=== PATIENT | male | born 1955 | race Caucasian/White ===

== ENCOUNTER 2023-01-24 06:39 | Day surgery (SDC) | payer OTHER, SELFPAY ==
[2022-12-16 09:41] VITALS: BMI 32.5
[2023-01-24] VITALS (13 sets, daily range): BP systolic 96–135; BP diastolic 56–92; PULSE 67–86; RESP 13–21; TEMP 35.9–36.7; O2SAT 89–99; BMI 32.5
[2023-01-24] MEDS: LACTATED RINGERS 1,000 ML 21 ML IV ×2 (07:26→09:57)
[2023-01-24] MEDS: VANCOMYCIN 1,000 MG/200 ML PIGGYBACK 200 MG IV ×2 (07:26→08:56)
[2023-01-24] MEDS: ACETAMINOPHEN IV 1,000 MG/100 ML VIAL 400 MG IV (07:26)
--- NOTE | 2023-01-24 07:40 | PM.PREOP ---
Pre-operative Note COVID-19 Criteria for continued procedure: Expected advancement of disease process, Deterioration of the patient's condition or overall health, Delay expected to result in less-positive ultimate med/surg outcome and Non-surgical alternatives not available or appropriate per current SOC Interval Note History & Physical reviewed/Exam performed by Physician: Yes Changes to H&P: No
--- NOTE | 2023-01-24 08:33 | SUR.OPER ---
Lithotomy on padded OR bed, head on pillow, arms secured on padded arm boards at <90 degrees abduction. Legs secured in padded yellow fins stirrups.
[2023-01-24] MEDS: BUPIVACAINE LIPOSOME 266 MG/20 ML VIAL INJ (08:53)
[2023-01-24] MEDS: BUPIVACAINE 0.25% (PF) 30 ML, EPINEPHrine 0.15 MG INJ (08:53)
[2023-01-24] MEDS: GENTAMICIN 160 MG in SODIUM CHLORIDE 0.9% 100 ML 104 MG IV (08:57)
--- NOTE | 2023-01-24 10:25 | PM.OP.1 ---
Operative Date/Time/Diagnoses Date of procedure: 01/24/23 Time of procedure: 10:10 Pre-op diagnosis: Stress urinary incontinence Post-op diagnosis: same Procedure & Clinicians Procedure: 1. Placement AMS 800 artificial urinary sphincter. -4.5 cm cuff -inhibit zone control pump -61 cm to 70 cm pressure regulating balloon filled to 24 cc Same procedure as scheduled: Yes Indications: 1. Stress urinary incontinence. Surgeon: Margarita Russo Assistant Professor Of Nursing: Polina Louis Click Yes if Unassisted: No Anesthesia Type: General and Local (1.33% Exparel and 0.25% Marcaine with epinephrine.) Operative Notes Findings: Essentially normal midline perineal tissue planes. Closure Type: primary Specimen(s): none sent Prosthetic devices, grafts, tissues, transplants, or devices: See above and GTIN product numbers. Applied: implant(s) (See product GTIN LABELS) Estimated Blood Loss (mL): 5 Blood products transfused: none Procedure in detail: The patient was positioned supine was administered general anesthesia. He was then positioned in semi lithotomy in the abdomen, genitalia, groin and perineum was prepped and draped sterile fashion. A 16 Kinyarwanda Fiore catheter was placed in the bladder and the contents drained. The patient was then repositioned in more exaggerated lithotomy and local anesthetic with epinephrine was applied to the midline perineum. Incision was made in the posterior scrotum vertically in the midline perineum. Blunt dissection was used to divide the perineal body and perineal fat down to level of the bulbar urethra. Using blunt and cautery dissection the bulbar urethral was mobilized and isolated proximally. The girth of the bulbous urethral was then measured at 4.5 cm. Prosthetic components were prepared. Next, the skin was infiltrated with 0.25% Marcaine with epinephrine just above the right pubic symphysis over the superior margin of the pubic bone. A transverse incision was then made in the subcutaneous fat and Portia's fascia was divided with cautery and blunt technique down to the level of the rectus fascia. Just above the right pubic symphysis the rectus fascia was perforated with the close tips of the Strauss scissor. The index finger was then insinuated and a plane was developed over the surface of the periosteum in the retropubic space. Next the bulb reservoir was positioned in the space and the fascia was closed with a circumferential 2-0 Vicryl. The pump was then passed from this incision through the subcutaneous space into the anterior midline scrotum. Next the cuff was positioned appropriately around the bulbar urethra and the connection tubing was transferred using a trocar to the above-described right suprapubic incision. The reservoir was then filled to 24 cc. Straight barrel connectors x2 were used to connect and enclose the system being sure to bleed all air out. The veil connectors were then seated deeply within a subcutaneous pocket above the rectus fascia. The device was then cycled twice before being deactivated when the cuff was partially filled. The suprapubic skin layer was closed with a running 4-0 subcuticular Monocryl. A small Telfa pad was tailored appropriately over the incision and a transparent Telfa dressing was then applied over this site. Two 0 PDS was used to close the perineal body and the perineal space in 2 layers. A 2-0 Monocryl was then used in running fashion to reapproximate the subcutaneous layer. The skin was then reapproximated in the perineal midline with a running 4-0 Monocryl. The skin surface was cleaned and dried. Again a small Telfa was tailored appropriately to cover the incision site. Op site was then applied over this. The Fiore catheter was removed. The patient was then fitted with incontinence pads and was then repositioned in supine, awakened, and then transferred to a rrowan for transport to PACU. Complications: none Post-operative Condition: stable Disposition: PACU Plan for aftercare: DISCHARGE HOME
[2023-01-24] MEDS: ALBUTEROL/IPRATROPIUM 3 ML AMPUL INH (10:40)
== END 2023-01-24 11:50 | disposition home or self-care (01) ==
PROVIDERS: PCP Family Medicine; Referring Provider Specialist; Visit Provider Specialist
PROC: (CPT 53445; principal; 2023-01-24 07:45)
DX: N39.3 Stress incontinence (female) (male) (principal); N52.9 Male erectile dysfunction, unspecified; Z85.46 Personal history of malignant neoplasm of prostate; Z80.42 Family history of malignant neoplasm of prostate
CPT/HCPCS: 53445; 82962; C1771; C9290; J0131; J0171; J0330; J1100; J2405; J2704; J3010

== ENCOUNTER → 2023-09-13 14:02 | Outpatient (CLI) | payer OTHER, SELFPAY ==
[2023-09-13 14:54] LABS: Appearance Urine UA CLEAR; Bilirubin Urine UA NEGATIVE (NEGATIVE); Color Urine UA YELLOW; Glucose Urine UA NEGATIVE (Negative); Ketones Urine UA NEGATIVE (NEGATIVE); Leukocyte Esterase Urine UA NEGATIVE (NEGATIVE); Nitrite Urine UA NEGATIVE (Negative); Occult Blood Urine UA NEGATIVE (Negative); Protein Urine UA NEGATIVE (Negative); pH Urine UA 5.5 (4.5-8.0)
[2023-09-13 15:35] LABS: Bacteria Urine None Seen; Culture Indicated Urine Cult Not Indicated; RBC Urine None Seen (0-5/HPF); Squamous Epithelial Cell Urine None Seen (0-5/HPF); WBC Urine 0-1/HPF (0-5/HPF)
== END ==
PROVIDERS: PCP Family Medicine; Visit Provider Specialist
DX: T83.111A Breakdown (mechanical) of implanted urinary sphincter, initial encounter (principal); Z85.46 Personal history of malignant neoplasm of prostate
CPT/HCPCS: 51798; 52000; 81001; 99215

== ENCOUNTER → 2024-06-21 14:37 | Outpatient (CLI) | payer OTHER, SELFPAY | PROVIDERS: PCP Family Medicine; Visit Provider Urology | DX: N39.3 Stress incontinence (female) (male) (principal) | CPT/HCPCS: 87086 ==

== ENCOUNTER → 2024-07-11 10:19 | Outpatient (CLI) | payer OTHER, SELFPAY | PROVIDERS: PCP Family Medicine; Visit Provider Urology | DX: R39.9 Unspecified symptoms and signs involving the genitourinary system (principal) | CPT/HCPCS: 87086 ==